=== PATIENT | male | born 1980 | race Two or more races ===

== ENCOUNTER 2024-12-23 12:08 | Outpatient (REF) | payer SELFPAY ==
--- OUTSIDE RECORDS SUMMARY | 2024-12-23 14:23 | XMS_ITS | Encounter Summary ---
Author Organization [employer] Address [address] [place] [address] [place] [address] Care Team Providers Care Process Checker Name Role Phone Sharron Nieves MD Primary Care Provider +1- [phone] Reason for Visit * Reason Comments Care Coordination CHW outreach for SDO H PT-1 and food needs-referral completed Encounter Details Date Type Department Care Team (Latest Contact Info) Description 12/09/2024 Patient Outreach [facility] MEDICINE [address] [place] [address] Sharron Nieves MD [address] [place] [address] Care Coordination (CHW outreach for SDOH PT-1 and food needs-referral completed /) Social History Tobacco Use Types Packs/Day Years Used Date Smoking Tobacco: Never Assessed Housing Stability Answer Date Recorded What is your housing situation today? I have janetoz momin 12/09/[address] you li ve. Do you have problems with any of the following? None of the above 12/09/2024 Food Insecurity Answer Date Recorded Within the past 12 months, y ou worried that your food would run out before you got money to buy more: Sometimes True 2024 Within the past 12 months,th e food you bought just didn't last and you didn't have enough money to get more: Sometimes True 12/09/2024 Transportation Answer Date Recorded In the past 12 months, has l ack of transportation kept you from medical appts, meetings, work or from getting things needed for daily living? No 12/09/2024 Utilities Answer Date Recorded In the past 12 months, has t he electric, gas, oil or water company threatened to shut off services in your home? No 12/09/2024 Internet Access Answer Date Recorded Internet Access Q1 Yes 12/09/2024 Internet Access Q2 Not on file 12/09/2024 Sex and Gender Information Value Date Recorded Sex Assigned at Male 11/15/2024 3:56 PM EST Legal Sex Male 11:17 AM EST Gender Identity Male 11/15/2024 3:56 PM EST Sexual Orientation Straight 11/15/2024 3: 56 PM EST documented as of this encounter Progress Notes * Danny Kennedy - 12/09/2024 12:56 PM EST CHW Danny Kennedy, placed outbound call to patient for assistance with SDOH as a referral was received by the provider. Patient's name and were confirmed. Patient screened positive for the following SDOH food insecurities. CHW referral patient to the local list of pantries in the area for help. PT-1 requested was send out in behalf of patient for [employer] appt. Patient verbalizes understandin g, and able to agree with plan to follow up. Patient educated on extended clinic hours on Mondays through Wednesdays, and Walk-In Urgent Care Located in [facility]. Patient provided with after-hours line for [facility], , which offer night time triage service and option to transfer to renewable energy division manager provider if needed. documented in this encounter Plan of Treatment Not on file documented as of this encounter Visit Diagnoses Not on filedocumented in this encounter Care Teams Process Checker Relationship Specialty Start Date End Date Sharron Nieves MD [address] [place] [id number] PCP - General Family Medicine 11/15/24 documented as of this encounter
--- OUTSIDE RECORDS SUMMARY | 2024-12-23 14:23 | XMS_ITS | Clinical Summary ---
Author Organization [facility] Address [address] [place] [address] 7 [place] [address] Care Team Providers Care Manager Sales Training Name Role Phone hSarron Nieves MD Primary Care Provider +1- [phone] Allergies No known active allergies Medications ibuprofen 800 MG tabletIndication s:Right lateral epicondylitis Take 1 tablet (800 mg) by mouth every 8 (eight) hours if needed for moderate pain or fever. 30 tablet 11/15/19 25 025 Discontinued(Me d list cleanup (will not trigger notification to Pharmacy)) Active Problems Problem Noted Date Diagnosed Date Right lateral epicondylitis 12/23/2024 Overview (12/23/2024): Hx of right lateral epicondylitis. -will follow-up in 1 month for injection. Assessment & Plan (12/23/2024 11:41 AM EST): Hx of right lateral epicondylitis. -will follow-up in 1 month for injection. Tendonitis of elbow, right 11/15/2024 Overview (11/15/2024): Reports months of right elbow pain gradually worsening. -recommended wearing a brace when working or using elbow excessively. -wrapped elbow. Encouraged resting the elbow when not working. -referred to joint injection clinic 11/15/24 -scheduled pt for new patient intake and annual evaluation in November 2024. Assessment & Plan (11/15/2024 6:26 PM EST): Reports months of right elbow pain gradually worsening. -recommended wearing a brace when working or using elbow excessively. -wrapped elbow. Encouraged resting the elbow when not working. -referred to joint injection clinic 11/15/24 -scheduled pt for new patient intake and annual evaluation in November 2024. Other specified health status 11/15/2024 Overview (12/23/2024): -next comprehensive annual evaluation due after 12/23/25 -eye care not needed. -dental home encouraged. -alaina care proxy given and filed 12/23/24 Assessment & Plan (12/23/2024 11:54 AM EST): -next comprehensive annual evaluation due after 12/23/25 -eye care not needed. -dental home encouraged. -alaina care proxy given and filed 12/23/24 Colon cancer screening 11/15/2024 Overview (12/23/2024): Discussed due for colon cancer. Insurance issues. -given FIT card 12/23/24 Assessment & Plan (12/23/2024 11:55 AM EST): Discussed due for colon cancer. Insurance issues. -given FIT card 12/23/24 Encounters Date Type Department Care Team Description 12/23/2024 11:00 AM EST Office Visit [address] [address] Sharron Nieves MD Right lateral epicondylitis (Primary Dx); Colon cancer screening; Encounter for immunization; Other specified health status; Dietary counseling; Exercise counseling; Class 1 obesity due to excess calories without serious comorbidity with body mass index (BMI) of 30.0 to 30.9 in adult 12/23/2024 Telephone [facility] MED & PEDS [address] [place] [address] Sharron Nieves MD Insurance 12/23/2024 Travel 12/21/[address] [address] Sharron Nieves MD Insurance 12/19/[address] [address] Sally Whitten [place] chartprep 12/09/2024 Patient Outreach [address] [phone] Sharron Nieves MD Care Coordination (CHW outreach for SDOH PT-1 and food needs-referral completed /) 12/09/2024 Patient Outreach [facility] MEDICINE [address] [place] [address] Sharron Nieves MD Pre-visit Planning (SDOH Screening positive and Tobacco screening negative) 11/15/2024 6:40 PM EST Office Visit [facility] [address] [place] [address] Sharron Nieves MD Right lateral epicondylitis (Primary Dx); Routine screening for STI (sexually transmitted infection) 11/15/2024 Telephone [facility] WALK-[facility] [address] [address] Treva Boucher RN from Last 3 Months Immunizations Name Administration Dates Next Due Hep B, adult 12/23/2024 Influenza, seasonal, injectable, preservative fr ee 12/23/2024 Tdap 12/23/2024 Family History Medical History Relation Name Comments Stroke Father Cancer Neg Hx Diabetes Neg Hx Relation Name Status Comments Father Social History Tobacco Use Types Packs/Day Years Used Date Smoking Tobacco: Never Smokeless Tobacco: Never Tobacco Cessation:Counseling Given: No Alcohol Use Standard Drinks/Week Comments Never 0 (1 standard drink = 0.6 oz pur e alcohol) Depression Answer Date Recorded Patient Health Questionnaire-9 Score 2 12/23/2024 Patient Health Questionnaire-9 Score 2 12/23/2024 Last PHQ-9: Questionnaire Data Not on file 0 12/23/2024 Housing Stability Answer Date Recorded What is your housing situation today? I have janet momin 12/09/[address] you [...] off services in your home? No 12/09/2024 Depression Answer Date Recorded Patient Health Questionnaire-2 Score 0 12/23/2024 Internet Access Answer Date Recorded Internet Access Q1 Yes 12/09/2024 Internet Access Q2 Not on file 12/09/2024 Sex and Gender Information Value Date Recorded Sex Assigned at Male 11/15/2024 3:56 PM EST Legal Sex Male 11:17 AM EST Gender Identity Male 11/15/2024 3:56 PM EST Sexual Orientation Straight 11/15/2024 3: 56 PM EST Last Filed Vital Signs Vital Sign Reading Time Taken Comments Blood Pressure 109/80 12/23/2024 11:19 AM EST Pulse 73 12/23/2024 11:19 AM EST Temperature 36.4 ??C (97.5 ??F) 12/23/2024 11:[address] Respiratory Rate 22 12/23/2024 11:19 AM EST Oxygen Saturation 98% 12/23/2024 11:19 AM EST Inhaled Oxygen Concentration - - Weight 76.2 kg (168 lb) 12/23/2024 11:19 AM EST Height 159 cm (5' 2.6 ) 12/23/2024 11:19 AM EST Body Mass Index 30.14 12/23/2024 11:19 AM EST Plan of Treatment Health Maintenance Due Date Last Done Comments CT Colonography 1978 Colonoscopy 1978 Colorectal Cancer Screening 1978 FIT DNA/Cologuard 1978 FIT 1978 FOBT 1978 HIV Screening 1978 Lipid Panel 1978 Sigmoidoscopy 1978 Family Planning (PISQ) 1993 Hepatitis C Screening 1996 Hepatitis B Vaccines (2 of 3 - 19+ 3-dose series) 01/20/2025 12/23/2024 SDOH Screening 12/09/2025 12/09/2024 Alcohol/Substance Use Screening 12/23/2025 12/23/2024 COVID-19 Vaccine (2023-2 5 season) 2025 Postponed from 06/26 (Patient Refused) Depression Screening 12/23/2025 12/23/2024, 12/23/2024 Tobacco Screening 12/23/2025 12/23/2024 Zoster Vaccines (1 of 2) 2028 DTaP/Tdap/Td Vaccines (2 - T d or Tdap) 12/23/2034 12/23/2024 RSV Patients and Patients Aged 60 years or older (1 - 1-dose 75+ series) 2053 Influenza Vaccine Completed 12/23/2024 HIB Vaccines Aged Out No longer eligi ble based on patient's age to complete this topic HPV Vaccines Aged Out No longer eligi ble based on patient's age to complete this topic Hepatitis A Vaccines Aged Out No long er eligible based on patient's age to complete this topic IPV Vaccines Aged Out No longer eligi ble based on patient's age to complete this topic Meningococcal Vaccine Aged Out No judie marianna eligible based on patient's age to complete this topic Pneumococcal Vaccine: Pediatrics (0 to 5 Years) and At-Risk Patients (6 to 49) Years) Aged Out No longer eligible b ased on patient's age to complete this topic RSV under 20 months Aged Out No longe r eligible based on patient's age to complete this topic Rotavirus Vaccines Aged Out No longer eligible based on patient's age to complete this topic Insurance HSN PARTIAL Care Teams Manager Sales Training Relationship Specialty Start Date End Date Hargill, MD Sharron [address] [place] [address] [phone] PCP - General Family Medicine 11/15/24
--- OUTSIDE RECORDS SUMMARY | 2024-12-23 14:23 | XMS_ITS | Encounter Summary ---
Author Organization [employer] Address [address] [place] [address] 7 [place] [address] Care Team Providers Care It Help Desk Analyst Name Role Phone Sharron Nieves MD Primary Care Provider +1- [phone] Reason for Visit * Reason Onset Date Comments Insurance 12/21/2024 Encounter Details Date Type Department Care Team ([facility] st Contact Info) Description 12/21/2024 Telephone [facility] MEDICINE [address] [place], [place] [phone] Sharron Nieves MD [address] [place], [place] [phone] Insurance Social History Tobacco Use Types Packs/Day Years Used Date Smoking Tobacco: Never Assessed Housing Stability Answer Date Recorded What is your housing situation today? I have janet liliane 12/09/[address] you li [...] PM EST documented as of this encounter Miscellaneous Notes * Telephone Encounter - Barbara Jacksonona - 12/21/2024 11:49 AM EST Called Patient advised [employer] no longer active. Patient only has HSN Partial. Patient said he will come to insurance enrollment before appointment and fix [address] [employer]. documented in this encounter Plan of Treatment Not on file documented as of this encounter Visit Diagnoses Not on filedocumented in this encounter Care Teams It Help Desk Analyst Relationship Specialty Start Date End Date Sharron Nieves MD [address] [place] [phone] PCP - General Family Medicine 11/15/24 documented as of this encounter
--- OUTSIDE RECORDS SUMMARY | 2024-12-23 14:23 | XMS_ITS | Encounter Summary ---
Author Organization [employer] Address [address] [place] [address] 7 [place] [address] Care Team Providers Care Racecourse Barrier Attendant Name Role Phone Sharron Nieves MD Primary Care Provider +1- [phone] Reason for Visit * Reason Onset Date Comments chartprep 12/19/2024 Encounter Details Date Type Department Care Team ([facility] st Contact Info) Description 12/19/2024 Telephone [facility] MEDICINE [address] [place] [address] Sally Whitten MA chartprep Social History Tobacco Use Types Packs/Day Years [...] encounter Miscellaneous Notes * Telephone Encounter - Sally Whitten MA - 12/19/2024 10:02 AM EST ..Chart Prep Labs: not done Images: not applicable Vaccines due: Covid Due, Tdap Due, Hep B Due, and Flu Due Referrals: Not Applicable Screenings: Not Applicable Overdue care gaps: Sbirt, SDOH, PHQ-9, and Oral Health documented in this encounter Plan of Treatment Not on file documented as of this encounter Visit Diagnoses Not on filedocumented in this encounter Care Teams Racecourse Barrier Attendant Relationship Specialty Start Date End Date Sharron Nieves MD [address] [place] [phone] PCP - General Family Medicine 11/15/24 documented as of this encounter
--- OUTSIDE RECORDS SUMMARY | 2024-12-23 14:23 | XMS_ITS | Encounter Summary ---
Author Organization [employer] [facility] Address [address] [place] [address] 7 [place] [address] Care Team Providers Care Gardening Instructor Name Role Phone Sharron Nieves MD Primary Care Provider +1- [phone] Encounter Details Date Type Department Care Team (Latest Contact Info) Description 12/23/2024 Travel Social History Tobacco Use Types Packs/Day Years Used Date Smoking Tobacco: Never Smokeless Tobacco: Never Alcohol Use Standard Drinks/Week Comments Never 0 (1 standard drink = 0.6 oz pur e alcohol) Depression Answer Date Recorded Patient Health Questionnaire-9 Score 2 12/23/2024 Patient Health Questionnaire-9 Score 2 12/23/2024 Last PHQ-9: Questionnaire Data Not on file 0 12/23/2024 Housing Stability Answer Date Recorded What is your housing situation today? I have jaent momin 12/09/[address] you [...] PM EST documented as of this encounter Plan of Treatment Not on file documented as of this encounter Visit Diagnoses Not on filedocumented in this encounter Additional Health Concerns Assessment Noted Time PHQ-9 Depression Total Score: 2 12/23/19 11:27 AM EST documented as of this encounter Care Teams Gardening Instructor Relationship Specialty Start Date End Date Sharron Nieves MD [address] [place] [phone] PCP - General Family Medicine 11/15/24 documented as of this encounter
--- OUTSIDE RECORDS SUMMARY | 2024-12-23 14:23 | XMS_ITS | Encounter Summary ---
Author Organization [facility] Address [address] [place] [address] 7 [place] [address] Care Team Providers Care Parimutuel Ticket Seller Name Role Phone Sharron Nieves MD Primary Care Provider +1- [phone] Encounter Details Date Type Department Care Team (Latest Contact Info) Description 12/23/2024 11:00 AM EST Office Visit [facility] MEDICINE [address] [place], [place] [phone] Sharron Nieves MD [address] [place], [place] [phone] Right lateral epicondylitis (Primary Dx); Colon cancer screening; Encounter for immunization; Other specified health status; Dietary counseling; Exercise counseling; Class 1 obesity due to excess calories without serious comorbidity with body mass index (BMI) of 30.0 to 30.9 in adult Social History Tobacco Use Types Packs/Day Years [...] PM EST documented as of this encounter Last Filed Vital Signs Vital Sign Reading [...] Mass Index 30.14 12/23/2024 11:19 AM EST documented in this encounter Patient Instructions * Patient Instructions* Sharron Nieves MD - 12/23/2024 11:00 AM EST [email or web address] documented in this encounter Progress Notes * Sharron Nieves MD - 12/23/2024 11:00 AM EST Austyn Del Toro is a 44 y.o. male who presents to the office today for ne patient intake and comprehensive annual evaluation. Seen in Walk-In on 11/15/24. Ordered routine labs that have not been completed. Pt reports he has had lateral epicondylitis. Agrees to come back for injection. Agrees to Tetanus, Hep B, and Flu vaccines today. Declined COVID vaccine. Social History: He works in construction. He denies any known personal medical history. No known allergies. Dad had brain aneurysm. Tobacco: denied Drugs: none Alcohol: No Wears seatbelt. Sexuality: Denies current sexual activity. Denies condoms. Suicide/Depression: The patient denies any present symptoms of depression or anxiety. Review of Systems Constitutional: Negative for fatigue, fever and unexpected weight change. Respiratory: Negative for cough. Cardiovascular: Negative for chest pain. Gastrointestinal: Negative for abdominal pain. Genitourinary: Negative for difficulty urinating. No current outpatient medications on file. No Known Allergies No past medical history on file. No past surgical history on file. Family History Problem Relation Name Age of Onset Stroke Father Diabetes Neg Hx Cancer Neg Hx Objective Visit Vitals BP 109/80 (BP Location: Left arm, Patient Position: Sitting, BP Cuff Size: Adult) Pulse 73 Temp 97.5 ??F (36.4 ??C) (Temporal) Resp 22 Ht 5' 2.6 (1.59 m) Wt 168 lb (76.2 kg) SpO2 98% BMI 30.14 kg/m?? Smoking Status Never BSA 1.83 m?? Physical Exam Constitutional: Appearance: Normal appearance. HENT: Right Ear: Tympanic membrane normal. Left Ear: Tympanic membrane normal. Nose: Nose normal. Mouth/Throat: Pharynx: Oropharynx is clear. Eyes: Extraocular Movements: Extraocular movements intact. Pupils: Pupils are equal, round, and reactive to light. Cardiovascular: Rate and Rhythm: Normal rate and regular rhythm. Heart sounds: Normal heart sounds. Pulmonary: Effort: Pulmonary effort is normal. Breath sounds: Normal breath sounds. No wheezing. Abdominal: General: Abdomen is flat. Palpations: Abdomen is soft. Tenderness: There is no abdominal tenderness. Musculoskeletal: General: Normal range of motion. Skin: General: Skin is warm and dry. Neurological: General: No focal deficit present. Mental Status: He is alert. Psychiatric: Mood and Affect: Mood normal. Behavior: Behavior normal. 44 y.o. male annual evaluation. Problem List Items Addressed This Visit Right lateral epicondylitis - Primary Hx of right lateral epicondylitis. -will follow-up in 1 month for injection. Colon cancer screening Discussed due for colon cancer. Insurance issues. -given FIT card 12/23/24 Other specified health status -next comprehensive annual evaluation due after 12/23/25 -eye care not needed. -dental home encouraged. -alaina care proxy given and filed 12/23/24 Other Visit Diagnoses Encounter for immunization Relevant Orders TDAP VACCINE 7 yrs + (Completed) FLU VACCINE TRIVALENT (Fluzone) 6 mo + (Completed) HEPATITIS B VACCINE ADULT 20 yrs + (Completed) Dietary counseling Exercise counseling Class 1 obesity due to excess calories without serious comorbidity with body mass index (BMI) of 30.0 to 30.9 in adult Annual Evaluation -Normal growth and development. -Anticipatory guidance discussed. -Preventative care / harm reduction discussed. Follow up in about 1 month (around 01/20/2025) for lateral epicondylitis injection, daniel also give recall 1 yr for physical. ICourt, am serving as a scribe to document services personally performed by Dr. Hurtado, based on the patient's response to questions by provider and providers statements to me. documented in this encounter Miscellaneous Notes * Assessment & Plan Note - Court Hernandez - 12/23/2024 11:55 AM ESTAssociated Problem(s): Colon cancer screening Discussed due for colon cancer. Insurance issues. -given FIT card 12/23/24 * Assessment & Plan Note - Court Hernandez - 12/23/2024 11:54 AM ESTAssociated Problem(s): Other specified health status -next comprehensive annual evaluation due after 12/23/25 -eye care not needed. -dental home encouraged. -alaina care proxy given and filed 12/23/24 * Assessment & Plan Note - Court Hernandez - 12/23/2024 11:41 AM ESTAssociated Problem(s): Right lateral epicondylitis Hx of right lateral epicondylitis. -will follow-up in 1 month for injection. documented in this encounter Plan of Treatment Not on file documented as of this encounter Visit Diagnoses Diagnosis Right lateral epicondylitis- Primary Colon cancer screening Special screening for malignant neoplasms, colon Encounter for immunization Other specified health status Dietary counseling Dietary surveillance and counseling Exercise counseling Class 1 obesity due to excess calories without serious comorbidity with body mass index (BMI) of 30.0 to 30.9 in adult documented in this encounter Additional Health Concerns Assessment Noted Time PHQ-9 Depression Total Score: 2 12/23/19 11:27 AM EST documented as of this encounter Care Teams Parimutuel Ticket Seller Relationship Specialty Start Date End Date Sharron Nieves MD [address] [place] [phone] PCP - General Family Medicine 11/15/24 documented as of this encounter
--- OUTSIDE RECORDS SUMMARY | 2024-12-23 14:23 | XMS_ITS | Encounter Summary ---
Author Organization [employer] Address [address] [facility] 7 [place] [address] Care Team Providers Care Supervisor Rework Name Role Phone Sharron Nieves MD Primary Care Provider +1- [phone] Reason for Visit * Reason Onset Date Comments Insurance 12/23/2024 Encounter Details Date Type Department Care Team ([facility] st Contact Info) Description 12/23/2024 Telephone [facility] MED & PEDS [address] [place] [address] Sharron Nieves MD [address] [place] [address] Insurance Social History Tobacco Use Types Packs/Day [...] encounter Miscellaneous Notes * Telephone Encounter - Peggy Ruiz MA - 12/23/2024 1:45 PM EST Lvm letting pt know that his current insurance, Veronica, will not cover a colonoscopy. Advised pt to change insurance if possible and to give us a call back if he had any questions or concerns. If pt does call back regarding insurance please refer to our insurance department. Thank you. documented in this encounter Plan of Treatment Not on file documented as of this encounter Visit Diagnoses Not on filedocumented in this encounter Additional Health Concerns Assessment Noted Time PHQ-9 Depression Total Score: 2 12/23/19 11:27 AM EST documented as of this encounter Care Teams Supervisor Rework Relationship Specialty Start Date End Date Sharron Nieves MD [address] [place] [phone] PCP - General Family Medicine 11/15/24 documented as of this encounter
--- OUTSIDE RECORDS SUMMARY | 2024-12-23 14:23 | XMS_ITS | Encounter Summary ---
Author Organization [employer] [facility] Address [address] [place] [address] [address] [place] [address] Care Team Providers Care Boiler Maker Name Role Phone Sharron Nieves MD Primary Care Provider [phone] Reason for Visit * Reason Comments Pre-visit Planning SDOH Screening posit nhan and Tobacco screening negative Encounter Details Date Type Department Care Team ([facility] st Contact Info) Description 12/09/2024 Patient Outreach [facility] [address] [place], [place] [id number] Sharron Nieves MD [address] [place] [address] Pre-visit Planning (SDOH Screening positive and Tobacco screening negative) Social History Tobacco Use Types Packs/Day Years [...] as of this encounter Progress Notes * Sally Jeffries - 12/09/2024 12:30 PM EST SAVANNA Argueta placed successful outbound call to patient for pre-visit planning. Patient name and confirmed. Patient confirms appt date and time, and has transportation arrangements. Biggest concern for appointment at this time is yes but will discuss it with PCP in person. Patient advised to bring to appointment a photo id and insurance card. Appropriate screenings completed in anticipation of appointment. SDOH positive. Patient looking for assistance with Food insecurities: Sometimes. Referral will be placed. documented in this encounter Plan of Treatment Not on file documented as of this encounter Visit Diagnoses Not on filedocumented in this encounter Care Teams Boiler Maker Relationship Specialty Start Date End Date Sharron Nieves MD [address] [place] [id number] PCP - General Family Medicine 11/15/24 documented as of this encounter
[2024-12-23 14:38] LABS: Anion Gap 10 (12-20); Blood Urea Nitrogen 14 mg/dL (9-16); Calcium 9.4 mg/dL (8.4-10.2); Carbon Dioxide 27 mmol/L (22-29); Chloride 107 mmol/L (96-108); Cholesterol 193 mg/dL (<200); Estimated Glomerular Filt Rate > 60; Glucose Random 95 mg/dL (60-115); HDL Cholesterol 37 mg/dL (>40); LDL Cholesterol Calculated 132 mg/dL (<100); Potassium 3.6 mmol/L (3.3-5.1); Sodium 140 mmol/L (135-145); Triglycerides 121 mg/dL (<150)
[2024-12-23 15:26] LABS: CT PCR NOT DETECTED (Not Detect.); NG PCR NOT DETECTED (Not Detect.)
[2024-12-25 15:39] LABS: RPR Rapid Plasma Reagin NON-REACTIVE (NON-REACTIVE)
[2024-12-26 09:26] LABS: HIV AB/AG Nonreactive (Nonreactive); HIV Num 1 0.05 S/CO (0.00-0.99); ~HepC Num1 0.13 S/CO (0.00-0.79); ~Hepatitis C Antibody Nonreactive (Nonreactive)
== END 2024-12-23 12:09 | disposition home or self-care (01) ==
LOC: HO.HHCL 12:08
PROVIDERS: Visit Provider Family Medicine
DX: Z11.3 Encounter for screening for infections with a predominantly sexual mode of transmission (principal)
CPT/HCPCS: 80048; 80061; 86592; 86803; 87389; 87491; 87591